=== PATIENT | female | born 1955 | race Caucasian/White ===

== ENCOUNTER → 2021-01-22 | Day surgery (SDC) | payer MEDICARE, OTHER ==
[~2021-01-22] VITALS: Ht 180.3 cm; Wt 90.7 kg
[~2021-01-22] MED LIST: BENADRYL25 MG PO; CALCIUM PO; LIPITOR40 MG PO; LOSARTAN-HCTZ1 EAC1 PO; NEXIUM 40MG CAP40 MG PO; POTASSIUM PO; TOPROL XL 25MG25 MG PO
[2021-01-22 07:36] LABS: HCT 44.8 % (37.0-47.0); HGB 15.6 g/dl (12.5-16.0); MCH 30.9 pg (25.0-31.0); MCHC 34.8 g/dL (32.0-36.0); MCV 88.7 fL (78.0-100.0); MPV 9.7 fL (6.0-9.5); RBC 5.05 M/uL (4.20-5.40)
[2021-01-22 07:47] LABS: ALBUMIN 4.6 g/dL (3.4-5.0); BILIRUBIN - TOTAL 0.8 mg/dL (0.2-1.0); CREATININE 0.75 mg/dL (0.51-0.95); POTASSIUM 3.5 mmol/L (3.5-5.1); TOTAL PROTEIN 7.6 g/dL (6.4-8.2)
== END | disposition home or self-care (01) ==
LOC: FAS 07:01
PROVIDERS: Surgery
DX: Z12.11 Encounter for screening for malignant neoplasm of colon (principal); H26.9 Unspecified cataract; K21.9 Gastro-esophageal reflux disease without esophagitis; I10 Essential (primary) hypertension; E78.00 Pure hypercholesterolemia, unspecified; Z88.6 Allergy status to analgesic agent; Z79.82 Long term (current) use of aspirin; Z79.899 Other long term (current) drug therapy; Z90.710 Acquired absence of both cervix and uterus
CPT/HCPCS: 36415; 80053; J1610; J2250; J2704; J7120